=== PATIENT | female | born 1980 | race Caucasian/White ===

== ENCOUNTER → 2020-06-23 | Outpatient (CLI) | payer BC, OTHER | LOC: LAB 07:47 | PROVIDERS: ATTEND Internal Medicine Cardiovascular Disease | DX: Z11.59 Encounter for screening for other viral diseases (principal) ==

== ENCOUNTER → 2020-12-16 | Outpatient (CLI) | payer BC, OTHER | LOC: MRI 16:11 | PROVIDERS: ATTEND Internal Medicine Cardiovascular Disease | DX: M22.41 Chondromalacia patellae, right knee (principal); M25.561 Pain in right knee; R60.0 Localized edema ==